=== PATIENT | female | born 1975 | race American Indian/Alaskan Native ===

== ENCOUNTER 2018-11-24 11:31 | Emergency (ER) | payer SELFPAY ==
--- NOTE | 2018-11-24 13:36 | Emergency Department Report ---
HPI - General Chief Complaint: Psych Time Seen by Provider: 11/24/18 13:25 - HPI HPI: Room 13 The patient is a 43-year-old female presenting with chief complaint of depression and suicidal ideation. The patient states she has a history of depression but does not take her medication. The patient states for the past 2 months she's been depressed and rarely leaves the house. Patient states she has had suicidal ideation for 2 weeks. 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) - Family History Family history: no significant - Social History Smoking Status: Never Smoker Substance Use Type: None (denies illicit drug use) ED Review of Systems ROS: Stated complaint: DEPRESSION Other details as noted in HPI Constitutional: no symptoms reported Eyes: denies: eye pain ENT: denies: throat pain Respiratory: no symptoms reported Cardiovascular: denies: chest pain Endocrine: no symptoms reported Gastrointestinal: denies: abdominal pain Genitourinary: denies: dysuria Musculoskeletal: denies: back pain Neurological: denies: headache Psychiatric: depression, suicidal thoughts Physical Exam - Physical Exam Vital Signs: Vital Signs 11/24/18 11:45 Temperature 98 F Pulse Rate 82 Respiratory 18 Rate Blood Pressure 144/97 O2 Sat by Pulse 98 Oximetry Physical Exam: GENERAL: The patient is well-developed well-nourished female sitting in chair not appearing to be in acute distress. [] HEENT: Normocephalic. Atraumatic. Extraocular motions are intact. Patient has moist mucous membranes. NECK: Supple. Trachea midline CHEST/LUNGS: Clear to auscultation. There is no respiratory distress noted. HEART/CARDIOVASCULAR: Regular. There is no tachycardia. There is no gallop rub or murmur. ABDOMEN: Abdomen is soft, nontender. Patient has normal bowel sounds. There is no abdominal distention. SKIN: There is no rash. There is no edema. There is no diaphoresis. NEURO: The patient is awake, alert, and oriented. The patient is cooperative. The patient has normal speech MUSCULOSKELETAL:There is no evidence of acute injury. ED Course Vital Signs 11/24/18 11:45 Temperature 98 F Pulse Rate 82 Respiratory 18 Rate Blood Pressure 144/97 O2 Sat by Pulse 98 Oximetry ED Medical Decision Making - Lab Data Result diagrams: 11/24/18 13:34 11/24/18 13:34 Laboratory Tests 11/24/18 11/24/18 11/24/18 13:34 13:34 13:34 WBC 11.8 H RBC 4.72 Hgb 12.8 Hct 39.4 MCV 84 MCH 27 L MCHC 33 RDW 17.0 H Plt Count 332 Lymph % (Auto) 21.4 [place] % (Auto) 4.1 Eos % (Auto) 1.8 Baso % (Auto) 0.6 Lymph # 2.5 [place] # 0.5 Eos # 0.2 Baso # 0.1 Seg Neutrophils % 72.1 H Seg Neutrophils # 8.5 H Sodium 137 Potassium 4.5 Chloride 99.8 Carbon Dioxide 22 Anion Gap 20 BUN 14 Creatinine 0.7 Estimated GFR > 60 BUN/Creatinine Ratio 20 Glucose 128 H Calcium 10.0 Total Bilirubin 0.20 AST 10 ALT 8 Alkaline Phosphatase 117 Total Protein 8.0 Albumin 4.3 Albumin/Globulin Ratio 1.2 HCG, Qual Urine Color Urine Turbidity Urine pH Ur Specific [place] Urine Protein Urine Glucose (UA) Urine Ketones Urine Blood Urine Nitrite Urine Bilirubin Urine Urobilinogen Ur Leukocyte Esterase Urine WBC (Auto) Urine RBC (Auto) U Epithel Cells (Auto) Urine Bacteria (Auto) Urine Mucus Salicylates < 0.3 L Urine Opiates Screen Urine Methadone Screen Acetaminophen Ur Barbiturates Screen Ur Phencyclidine Scrn Ur Amphetamines Screen U Benzodiazepines Scrn Urine Cocaine Screen U Marijuana (THC) Screen Drugs of Abuse Note Plasma/Serum Alcohol 11/24/18 11/24/18 11/24/18 13:34 13:34 13:34 WBC RBC Hgb Hct MCV MCH MCHC RDW Plt Count Lymph % (Auto) [place] % (Auto) Eos % (Auto) Baso % (Auto) Lymph # [place] # Eos # Baso # Seg Neutrophils % Seg Neutrophils # Sodium Potassium Chloride Carbon Dioxide Anion Gap BUN Creatinine Estimated GFR BUN/Creatinine Ratio Glucose Calcium Total Bilirubin AST ALT Alkaline Phosphatase Total Protein Albumin Albumin/Globulin Ratio HCG, Qual Negative Urine Color Urine Turbidity Urine pH Ur Specific [place] Urine Protein Urine Glucose (UA) Urine Ketones Urine Blood Urine Nitrite Urine Bilirubin Urine Urobilinogen Ur Leukocyte Esterase Urine WBC (Auto) Urine RBC (Auto) U Epithel Cells (Auto) Urine Bacteria (Auto) Urine Mucus Salicylates Urine Opiates Screen Urine Methadone Screen Acetaminophen < 5.0 L Ur Barbiturates Screen Ur Phencyclidine Scrn Ur Amphetamines Screen U Benzodiazepines Scrn Urine Cocaine Screen U Marijuana (THC) Screen Drugs of Abuse Note Plasma/Serum Alcohol < 0.01 11/24/18 11/24/18 Unknown Unknown WBC RBC Hgb Hct MCV MCH MCHC RDW Plt Count Lymph % (Auto) [place] % (Auto) Eos % (Auto) Baso % (Auto) Lymph # [place] # Eos # Baso # Seg Neutrophils % Seg Neutrophils # Sodium Potassium Chloride Carbon Dioxide Anion Gap BUN Creatinine Estimated GFR BUN/Creatinine Ratio Glucose Calcium Total Bilirubin AST ALT Alkaline Phosphatase Total Protein Albumin Albumin/Globulin Ratio HCG, Qual Urine Color Yellow Urine Turbidity Clear Urine pH 5.0 Ur Specific [place] 1.034 H Urine Protein <15 mg/dl Urine Glucose (UA) Neg Urine Ketones Neg Urine Blood Neg Urine Nitrite Neg Urine Bilirubin Neg Urine Urobilinogen < 2.0 Ur Leukocyte Esterase Neg Urine WBC (Auto) 2.0 Urine RBC (Auto) 1.0 U Epithel Cells (Auto) 3.0 Urine Bacteria (Auto) 1+ Urine Mucus Few Salicylates Urine Opiates Screen Presumptive negative Urine Methadone Screen Presumptive negative Acetaminophen Ur Barbiturates Screen Presumptive negative Ur Phencyclidine Scrn Presumptive negative Ur Amphetamines Screen Presumptive negative U Benzodiazepines Scrn Presumptive negative Urine Cocaine Screen Presumptive negative U Marijuana (THC) Screen Presumptive negative Drugs of Abuse Note Disclamer Plasma/Serum Alcohol - Differential Diagnosis suicidal ideation, depression Critical care attestation.: If time is entered above; I have spent that time in minutes in the direct care o f this critically ill patient, excluding procedure time. ED Disposition Clinical Impression: Suicidal ideation, Depression Disposition: [id number]/TX-65 PSY HOSP/PSY UNIT Is pt being admited?: No Does the pt Need Aspirin: No Condition: Serious Referrals: PRIMARY CARE, [Primary Care Provider] - 3-5 Days Time of Disposition: 13:36 (awaiting acceptance)
[2018-11-24 13:59] LABS: Basophils # (Auto) 0.1 K/mm3 (0.0-0.1); Basophils % (Auto) 0.6 % (0.0-1.8); Eosinophils # (Auto) 0.2 K/mm3 (0.0-0.4); Eosinophils % (Auto) 1.8 % (0.0-4.3); Hematocrit 39.4 % (30.3-42.9); Hemoglobin 12.8 gm/dl (10.1-14.3); Lymphocytes # (Auto) 2.5 K/mm3 (1.2-5.4); Lymphocytes % (Auto) 21.4 % (13.4-35.0); Mean Corpuscular HGB Conc 33 % (30-34); Mean Corpuscular Volume 84 fl (79-97); Monocytes # (Auto) 0.5 K/mm3 (0.0-0.8); Monocytes % (Auto) 4.1 % (0.0-7.3); Platelet Count 332 K/mm3 (140-440); Red Blood Count 4.72 M/mm3 (3.65-5.03)
[2018-11-24] MEDS ORDERED: VISTARIL PO PRN (14:05)
[2018-11-24 14:16] LABS: Alanine Aminotransferase 8 units/L (7-56); Albumin 4.3 g/dL (3.9-5); BUN/Creatinine Ratio 20; Blood Urea Nitrogen 14 mg/dL (7-17); Hemolysis Index 7
[2018-11-24 14:38] LABS: Bacteria,Urine 1+ /HPF (Negative); Bilirubin,Urine NEG (Negative); Blood,Urine NEG (Negative); Color,Urine Yellow (Yellow); Mucus,Urine FEW /HPF; Protein,Urine <15 mg/dL mg/dL (Negative); Urobilinogen,Urine < 2.0 mg/dL (<2.0)
[2018-11-24 14:49] LABS: Amphetamine Screen,Urine PRESUMPTIVE NEGATIVE; Benzodiazepines Screen,Urine PRESUMPTIVE NEGATIVE; Cannabinoid Screen,Urine PRESUMPTIVE NEGATIVE; Cocaine Screen,Urine PRESUMPTIVE NEGATIVE; Methadone Screen,Urine PRESUMPTIVE NEGATIVE; Opiate Screen,Urine PRESUMPTIVE NEGATIVE
[2018-11-25] MEDS: VISTARIL PO SCH ×3 (11:19→20:30)
[2018-11-25] MEDS: WELLBUTRIN PO SCH (11:21)
--- NOTE | 2018-11-25 13:59 | Consultation ---
History of Present Illness - Reason for Consult Consult date: 11/25/18 Reason for consult: Mental Health Evaluation Requesting physician: CHAYITO STANTON - Chief Complaint Chief complaint: "I don't know what to do with my life" - History of Present Psychiatric Illness 43 y.o. AA female presented to the ER for depression and SI's. Today the patient is calm and cooperative during the assessment. She stated that she have been isolating herself from family and friends the pat 2 months. She stated that she resigned from her job, because she could deal with the issues that came with the position. She stated that her father recently. She stated that she has dealt with depression since she was a teenager. She stated that she used to cut herself and attempted suicide x 2. She stated that her last suicide attempt was done by drinking antifreeze last year. She rate her depression 8/10, with 10 being the worse. She stated being anxious "internally." She denied HI's and AVH's. She would not confirm or deny SI's. She denies a poor appetite, but acknowledged erratic sleep. She denies recreational drug use and alcohol consumption (etoh). Medications and Allergies Allergies Allergy/AdvReac Type Severity Reaction Status Date / Time No Known Allergies Allergy Verified 11/25/18 10:04 Active Meds: Active Medications Bupropion HCl (Wellbutrin) 150 mg PO DAILY [facility] Last Admin: 11/25/18 11:21 Dose: Not Given Documented by: Hydroxyzine Pamoate (Vistaril) 25 mg PO TID [facility] Last Admin: 11/25/18 11:19 Dose: 25 mg Documented by: Mental Status Exam - Vital signs Last Vital Signs Temp 98.3 F 11/25/18 13:15 Pulse 89 11/25/18 13:15 Resp 18 11/25/18 13:15 BP 138/86 11/25/18 13:15 Pulse Ox 96 11/25/18 13:15 - Exam Narrative exam: MSE: Appearance: calm, cooperative Behavior: regular eye contact Speech: regular rate and tone Mood: "depressed' Affect: congruent to mood Thought Process: circumstantial Thought Content: denies HI's and AVH's Motor Activity: ambulatory Cognition: A/O x3 Insight: fair Judgment: poor Results Result Diagrams: 11/24/18 13:34 11/24/18 13:34 Abnormal lab results 11/24/18 11/24/18 11/24/18 Range/Units 13:34 13:34 13:34 WBC 11.8 H (4.5-11.0) K/mm3 MCH 27 L (28-32) pg RDW 17.0 H (13.2-15.2) % Seg Neutrophils % 72.1 H (40.0-70.0) % Seg Neutrophils # 8.5 H (1.8-7.7) K/mm3 Glucose 128 H (65-100) mg/dL Ur Specific [place] (1.003-1.030) Salicylates < 0.3 L (2.8-20.0) mg/dL Acetaminophen (10.0-30.0) ug/mL 11/24/18 11/24/18 Range/Units 13:34 Unknown WBC (4.5-11.0) K/mm3 MCH (28-32) pg RDW (13.2-15.2) % Seg Neutrophils % (40.0-70.0) % Seg Neutrophils # (1.8-7.7) K/mm3 Glucose (65-100) mg/dL Ur Specific [place] 1.034 H (1.003-1.030) Salicylates (2.8-20.0) mg/dL Acetaminophen < 5.0 L (10.0-30.0) ug/mL All other labs normal. Assessment and Plan Assessment and plan: Impression: MDD, Severe Type. Unspecified Anxiety DO. Today the patient is calm and cooperative during the assessment. The patient would not confirm or deny SI's. DDx: R/O Bipolar DO Recommendation/Plan: Continue 1013. Start Wellbutrin 150 mg PO daily for depression and Vistaril 25 mg PO TID for anxiety. Discussed possible suicidality/medication induced kadie with the patient, she verbalized understanding. Dispo: The patient will be referred to inpatient psy services. Will staff with Dr Bryan Remy.
[2018-11-26] MEDS: VISTARIL PO SCH ×3 (09:14→21:38)
--- NOTE | 2018-11-26 11:51 | Progress Note ---
Subjective - Reason for Consult Consult date: 11/26/18 Reason for consult: Psychiatry Follow-up - Chief Complaint Chief complaint: "I will take my medication" 43 y.o. AA female presented to the ER for depression and SI's. Today the patient is calm and cooperative during the assessment. She was asked about taking Wellbutrin, she stated, "I thought it may keep me up." The patient was educated on Wellbutrin, she verbalized understanding. She stated, "I will take the medication today." She is adamant that she want to get better "mentally." She is willing to do her part reference her mental health. She denies SI/HI's and AVH's. Mental Status Exam - Vital signs Last Vital Signs Temp 98.0 F 11/25/18 22:03 Pulse 95 H 11/25/18 22:03 Resp 18 11/25/18 22:03 BP 125/80 11/25/18 22:03 Pulse Ox 99 11/25/18 22:03 - Exam Narrative exam: MSE: Appearance: calm, cooperative Behavior: regular eye contact Speech: regular rate and tone Mood: "okay" Affect: congruent to mood Thought Process: circumstantial Thought Content: denies SI/HI's and AVH's Motor Activity: ambulatory Cognition: A/O x3 Insight: fair Judgment: variable to fair Assessment and Plan Impression: MDD, Severe Type. Unspecified Anxiety DO. Today the patient is calm and cooperative during the assessment. DDx: R/O Bipolar DO Recommendation/Plan: Continue 1013, Wellbutrin 150 mg PO daily for depression, and Vistaril 25 mg PO TID for anxiety. Discussed possible suicidality/medication induced kadie with the patient, she verbalized understanding. Dispo: The patient will be referred to inpatient psy services. Will staff with Dr Bryan Remy.
[2018-11-26] MEDS: WELLBUTRIN PO SCH (12:15)
[2018-11-27] MEDS: VISTARIL PO SCH (08:59)
[2018-11-27] MEDS: WELLBUTRIN PO SCH (10:50)
--- NOTE | 2018-11-27 12:27 | Progress Note ---
Subjective - Reason for Consult Consult date: 11/27/18 Reason for consult: Psyhciatry Follow-up - Chief Complaint Chief complaint: "I will follow up" 43 y.o. AA female presented to the ER for depression and SI's. Today the patient is calm and cooperative during the assessment. Per collateral information from the patient's mother Ms Vaz at [phone] stated that she is her daughter's support system when she is discharged. The patient stated that she will follow up with outpatient psy services. She stated that she will be complaint with her medications. She denies SI/HI's and AVH's. She denies any side effects of her medications. Mental Status Exam - Vital signs Last Vital Signs Temp 98.0 F 11/27/18 08:27 Pulse 78 11/27/18 08:27 Resp 18 11/27/18 08:27 BP 145/97 11/27/18 08:27 Pulse Ox 97 11/27/18 08:27 - Exam Narrative exam: MSE: Appearance: calm, cooperative Behavior: regular eye contact Speech: regular rate and tone Mood: "okay" Affect: congruent to mood Thought Process: linear Thought Content: denies SI/HI's and AVH's Motor Activity: ambulatory Cognition: A/O x3 Insight: appropriate Judgment: appropriate Assessment and Plan Impression: MDD, Severe Type. Unspecified Anxiety DO. Today the patient is calm and cooperative during the assessment. DDx: R/O Bipolar DO Recommendation/Plan: Rescind 1013. Continue Wellbutrin 150 mg PO daily for depression and Vistaril 25 mg PO TID for anxiety. Discussed possible suicidality/medication induced kadie with the patient reference Wellbutrin, she verbalized understanding. Discussed generalize coping skills with the patient. Dispo: The patient can follow up with [facility] for outpatient psy services. Will staff with Dr Bryan Remy.
[2018-11-27 13:44] VITALS: BP 164/69
== END 2018-11-27 13:56 | disposition home or self-care (01) ==
LOC: EEVIPCON 11:31 → ED 11:31
DX: F32.9 Major depressive disorder, single episode, unspecified (principal)
CPT/HCPCS: 36415; 80053; 80307; 81001; 84703; 85025; 99285; G0480; 80320; Q0177